=== PATIENT | female | born 1960 | race Caucasian/White ===

== ENCOUNTER → 2020-04-28 09:47 | Outpatient (BNVA) | payer BC, SELFPAY | PROVIDERS: Family Provider Family Medicine; Visit Provider Internal Medicine | DX: Z11.59 Encounter for screening for other viral diseases (principal) | CPT/HCPCS: 87635 ==

== ENCOUNTER 2020-09-08 14:08 | Outpatient (CLI) | payer BC, SELFPAY ==
--- NOTE | 2020-09-08 14:14 | MM_ITS ---
WS: [id number] BILATERAL SCREENING DIGITAL MAMMOGRAM WITH CAD HISTORY: SCREENING COMPARISON: 06/25/2018 and 01/10/2018 Bilateral CC and MLO views submitted. Computer aided detection analyzed. Breast composition: There are scattered areas of fibroglandular density. No suspicious masses, microc alcifications or architectural distortion. MM/[place] [id number] IMPRESSION: BI-RADS: 1-Negative FOLLOW UP: 1 Year Follow-up
== END 2020-09-08 14:09 | disposition home or self-care (01) ==
LOC: RADSHAW 14:13
PROVIDERS: PCP Family Medicine; Visit Provider Family Medicine
DX: Z12.31 Encounter for screening mammogram for malignant neoplasm of breast (principal)
CPT/HCPCS: 77067

== ENCOUNTER → 2020-10-31 11:06 | Outpatient (BNVA) | payer BC, SELFPAY | PROVIDERS: PCP Family Medicine; Visit Provider Internal Medicine Rheumatology | DX: M79.7 Fibromyalgia (principal); M62.81 Muscle weakness (generalized); R76.8 Other specified abnormal immunological findings in serum; R70.0 Elevated erythrocyte sedimentation rate; R53.83 Other fatigue; G56.03 Carpal tunnel syndrome, bilateral upper limbs | CPT/HCPCS: 99204 ==

== ENCOUNTER 2020-11-01 16:24 | Outpatient (CLI) | payer BC, SELFPAY ==
[2020-11-01 17:02] LABS: Creatine Phosphokinase 85 U/L (26-192)
[2020-11-01 17:56] LABS: Erythrocyte Sedimentation Rate 39 mm/hr (0-15)
[2020-11-03 13:13] LABS: Aldolase 4.3 U/L (< OR = 8.1)
== END 2020-11-01 16:25 | disposition home or self-care (01) ==
LOC: LAB 16:28
PROVIDERS: PCP Family Medicine; Visit Provider Internal Medicine Rheumatology
DX: M60.9 Myositis, unspecified (principal); M62.81 Muscle weakness (generalized); R70.0 Elevated erythrocyte sedimentation rate
CPT/HCPCS: 36415; 82085; 82550; 85651; 86140

== ENCOUNTER → 2020-11-16 14:12 | Outpatient (BNVA) | payer BC, SELFPAY | PROVIDERS: PCP Family Medicine; Visit Provider Psychiatry & Neurology Neurology | DX: M62.81 Muscle weakness (generalized) (principal); M79.7 Fibromyalgia | CPT/HCPCS: 95885; 95886; 95910 ==

== ENCOUNTER → 2020-11-23 13:57 | Outpatient (BNVA) | payer BC, SELFPAY | PROVIDERS: PCP Family Medicine; Visit Provider Internal Medicine Rheumatology | DX: M79.7 Fibromyalgia (principal); R76.8 Other specified abnormal immunological findings in serum; R53.83 Other fatigue | CPT/HCPCS: 99213 ==

== ENCOUNTER 2021-04-14 10:12 | Outpatient (CLI) | payer OTHER, SELFPAY ==
--- NOTE | 2021-04-14 10:18 | XR_ITS ---
WS: [id number] Right arm and humerus, 2 views, 04/14/2021 Clinical Data: ARM PAIN Comparison: None. Findings: No fractures or dislocations are seen. The shaft of the humerus is intact. No bone destruction or er osion is seen. The soft tissues are normal. XR/[place] [id number] Impression: Negative right arm and humerus.
== END 2021-04-14 10:13 | disposition home or self-care (01) ==
PROVIDERS: PCP Family Medicine; Visit Provider Family Medicine
DX: M79.601 Pain in right arm (principal)
CPT/HCPCS: 73060

== ENCOUNTER → 2021-10-25 11:12 | Outpatient (BNVA) | payer OTHER, SELFPAY | PROVIDERS: PCP Family Medicine; Visit Provider Podiatrist Foot & Ankle Surgery | DX: M79.671 Pain in right foot (principal); M21.611 Bunion of right foot | CPT/HCPCS: 73630 ==

== ENCOUNTER → 2021-10-30 11:27 | Outpatient (BNVA) | payer OTHER, SELFPAY | PROVIDERS: PCP Family Medicine; Visit Provider Podiatrist Foot & Ankle Surgery | DX: Z01.818 Encounter for other preprocedural examination (principal) | CPT/HCPCS: 87635 ==

== ENCOUNTER 2021-11-03 06:03 | Day surgery (SDC) | payer OTHER, SELFPAY ==
[2021-11-01 14:02] VITALS: BMI 27.2
[2021-11-03] VITALS (9 sets, daily range): BP systolic 119–142; BP diastolic 70–100; PULSE 74–91; RESP 16–18; TEMP 36.1–36.3; O2SAT 95–99
--- NOTE | 2021-11-03 | SCC_ITS ---
Procedure done: Right bunionectomy 3 seconds of fluoroscopic guidance, for a cumulative dose of 0.063 mGy, was provided to Dr. Padgett by the radiology department. C-arm images of the right foot were saved for the patient's permanent record. [facility]
--- NOTE | 2021-11-03 06:35 | W.PM.OPSUD ---
Surgery/Procedure H&P Update DATE OF PROCEDURE: November 03, 2021 DATE H&P PERFORMED: 10/25/21 CHANGES TO PREVIOUS DOCUMENTATION: None PREOP DIAGNOSIS: Right bunion PLANNED PROCEDURE: Operation Date: 11/03/21 07:00 Proposed Procedures p Double Osteotomy (bunionectomy)39637/M21.611 bunion of right foot(Right) - Clyde Padgett DPM
--- NOTE | 2021-11-03 06:38 | SC_ITS ---
WS: [id number] EXAMINATION: Intraoperative images of the right foot for 11/03/2021. HISTORY: Hallux valgus. FINDINGS: Lateral small plate and screw fixation of osteotomy in the proximal first phalanx. Osteotomy of the distal first metatarsal with screw fixation. Surgical appliances and bony structure are in proper position and alignment. SC/C-arm Mini [id number] IMPRESSION: Postoperative right foot as above.
[2021-11-03] MEDS: sodium chloride 0.9% 1,000 ML 30 ML IV (06:41)
[2021-11-03] MEDS: gabapentin 300 mg Capsule PO (06:42)
[2021-11-03] MEDS: CELEcoxib 200 mg Capsule 400 MG PO (06:42)
--- NOTE | 2021-11-03 06:55 | ANES.PREANE2 ---
Pre-Anesthetic Assessment Height/Weight: Height 1.57 m Weight 67.585 kg Temp Pulse Resp BP Pulse Ox 97.4 F L 91 16 140/100 97 11/03/21 06:20 11/03/21 06:20 11/03/21 06:20 11/03/21 06:20 11/03/21 06:20 Preop Diagnosis: Right bunion Operation Date: 11/03/21 07:00 Proposed Procedures p Double Osteotomy (bunionectomy)47584/M21.611 bunion of right foot(Right) - Clyde Padgett DPM Familial anesthetic complications: None Was Beta Jose taken within 24 hours: N/A Was Clonidine taken within 24 hours: N/A Last intake: Intake Last Liquid Date 11/02/21 Last Liquid Time 21:00 Last Solid Date 11/02/21 Last Solid Time 21:00 Social No alcohol and No tobacco Exam alert, oriented x 3, clear to auscultation bilaterally and regular rate & rhythm Airway Submandibular: within normal limits Cervical ROM: within normal limits Mallampati: Class II Dentition: full History/ROS No significant complaints Pulmonary Sleep Apnea CV/HEM None reported None reported Hepatic None reported Metabolic None reported Musc/skel Fibromyalgia Anesthetic Plan ASA status: 2 Anesthesia: Anesthesia Evaluation, General and MAC Other: I discussed with the patient risks, goals, and benefits of MAC and general anesthesia. We discussed spectrum of MAC anesthesia including conversion to general as well as possibility of recall of intraoperative stimuli including discomfort/pain. Patient agrees to proceed with MAC. Risk of > 500 ml blood loss (7ml/kg in children): No Medications/Allergies Home Medications Medication Instructions Recorded Confirmed Last Taken Type latanoprost 0.005 % eye drops 1 drp OPHTHALMIC (EYE) DAILY 11/01/21 11/03/21 11/02/21 History oxycodone-acetaminophen 10 mg-325 1 tab PO Q6H PRN 7 Days #28 tab 11/03/21 Unknown Rx mg tablet (Percocet) Allergies Allergy/AdvReac Type Severity Reaction Status Date / Time No Known Allergies Allergy Verified 10/25/21 11:18 Current Medications Generic Name Dose Route Start Last Admin Trade Name Freq PRN Reason Stop Dose Admin Sodium Chloride 1,000 mls @ 30 mls/hr 11/03/21 06:15 11/03/21 06:41 Sodium Chloride 0.9% IV 11/04/21 06:14 30 mls/hr .Q24H JW Administration PFSH Anesthesia Medical History Fatigue Fibromyalgia Fibromyalgia affecting forearm Hx of cold sores Muscle pain Positive FELECIA (antinuclear antibody) Proximal muscle weakness Surgical History History of hysterectomy Family History Other Cancer Hyperlipidemia Hypertension Lung disease Denies family history of Rheumatoid arthritis Diabetes Lupus Chronic kidney disease (CKD) Stroke Social History Smoking and tobacco status: never smoked Data Anesthesia Cardiac Studies: No Data to Display
--- NOTE | 2021-11-03 08:00 | XR_ITS ---
WS: [id number] Exam: XR foot RT min 3V* [id number] Date/Time of Exam: 11/03/2021 8:12 AM Reason For Exam: post op Comparison 10/25/2021. Signs of bunion repair with the osteotomy of the distal first metatarsal with screw fixation. There i s also an osteotomy along the medial margin of the first metatarsal head. An additional osteotomy wit h plate and screw fixation is noted in the proximal phalanx of the great toe. Soft tissue air noted. XR/XR foot RT min 3V* [id number] IMPRESSION: 1. Bunion repair with the internal fixation hardware as detailed above. Alignme nt appears to be satisfactory for healing. Postoperative changes in the adjacen t soft tissues.
--- NOTE | 2021-11-03 08:07 | PM.OP ---
Operative Report Date of procedure: November 03, 2021 Pre-op diagnosis: Right bunion Post-op diagnosis: Right bunion deformity Post-op findings: Right bunion deformity Procedure done: Right bunionectomy Implants: Laie 28 3 mm headed partially-threaded cannulated screw at the bunionectomy site. Laie 28 10 x 10 x 10 mm nitinol angled Evan staple. 3-0 Vicryl, 4-0 Vicryl, 4-0 nylon, 20 cc of 0.25% Marcaine plain and a right Aquino block fashion preoperatively. 10 cc of Exparel and this was expanded with 10 cc of 0.25% Marcaine plain postoperatively per boat engines installer recommendation and technique in a grid like fashion subcutaneously at the operative site. Specimens removed/disposition: None Pathology: None Surgeon: Clyde Padgett D.P.M. Flask Fitter: Omar Estimated blood loss: Less than 5 35 IV fluids: None Urine output: None Complications: None Findings: None Brief History: Patient has had progression of bunion pain at the right foot affecting her quality of life and everyday living. Has failed conservative treatments consisting of wider accommodative shoes, supportive shoe, NSAIDs, stretching and activity modifications. Would like to proceed with a bunionectomy of the right foot. Risks include but are not limited to pain, bleeding, numbness, infection, hardware failure, delayed union, malunion, nonunion, hardware irritation, stiffening of the metatarsophalangeal joint, hallux varus, bruising, chronic numbness, decreased dorsiflexion at the right first metatarsophalangeal joint, avascular necrosis of the right first metatarsal head, need for further surgical intervention, deep vein thrombosis, heart attack, stroke and . Patient n.p.o. since midnight. Informed consent signed by patient and myself. No guarantees written, expressed or implied. Patient wishes to proceed. Procedure: Under mild sedation the patient was brought to the operating room and remained on the gurney in supine position. A timeout was performed. Anesthesia was then administered by the anesthesia service. Local anesthesia injected by myself consisting of 20 cc of 0.5% Marcaine plain and a right Aquino block fashion. A well-padded pneumatic tourniquet applied to the right ankle. The right lower extremity was scrubbed, prepped and draped utilizing normal aseptic technique. Right foot was then exanguinated with an Esmarch bandage and the tourniquet inflated to 250 mmHg. Attention was directed to the right first metatarsophalangeal joint where a dorsal medial incision was made medial and parallel to the extensor houses longus tendon through skin with a #15 blade. Dissection carried down through subcutaneous tissue to the layer of periosteum and joint capsule utilizing blunt and sharp technique. Care was taken to retract and preserve neurovascular and tendinous structures. All bleeders were ligated and cauterized as necessary. Linear capsulotomy was performed in the head of the first metatarsal and base of the proximal phalanx medially were freed from their soft tissue and capsular attachments. Medial eminence was transected at the right first metatarsal head and passed from operative field followed by a chevron style osteotomy with apex oriented to distally through and through, the head of the first metatarsal was translocated laterally in a more anatomically correct position and fixated utilizing standard AO technique. This was fixated with a Laie 28 3 mm headed partially-threaded cannulated screw with excellent bony apposition and compression noted, utilizing intraoperative fluoroscopy it was noted that the screw did not violate the first metatarsophalangeal joint. The incision was flushed with saline solution followed by transection of the remaining medial eminence and shelf this was then smoothed at the first metatarsal head of all rough edges utilizing a hand rasp. Attention was then directed to the base of the proximal phalanx of the right great toe where a Evan osteotomy was performed utilizing a sagittal saw maintaining the lateral cortex to act as a hinge this was then reduced and fixated utilizing a Laie 2810 mm staple with excellent bone apposition and compression noted. Staple did not violate the first metatarsal phalangeal joint confirmed intraoperatively with direct visualization as well as with C arm. The incision site was flushed with copious amounts of sterile saline solution and closed in a layered fashion with the capsule closed with 3-0 Vicryl, subcutaneous tissue closed with 4-0 Vicryl and skin closed with 4-0 nylon. Subcutaneous tissue infiltrated with Exparel expanded with 0.25% Marcaine plain as above. Adaptic, 4 x 4's, Kerlix and Burton wrap were then applied along with a cam boot and tourniquet was deflated with a prompt hyperemic response noted to the distal digits of the right foot. Patient tolerated the procedure and anesthesia well and was transferred to the PACU with vital signs stable and vascular status intact. Following a period of postop monitoring she will be discharged home may be protected weightbearing with Cam boot was given at home instructions as well as follow-up, was given my phone number to contact with any postoperative questions or concerns. Percocet 10/325 mg sent to [facility] to be taken judiciously as needed for pain every 4-6 hours. She will begin a baby aspirin once daily starting tomorrow to potentially reduce the risk for deep vein thrombosis.
[2021-11-03] MEDS: oxyCODONE-APAP 10-325 mg Tablet 1 TAB PO (08:36)
--- NOTE | 2021-11-03 09:51 | ANE.PACU2 ---
Inpatient post-anesthesia follow up: Airway intact: Yes Vital signs: Temperature 97.0 F Pulse Rate 74 Respiratory Rate 16 Blood Pressure 139/78 Pulse Oximetry 95 Oxygen Delivery Me thod Room Air Oxygen Flow Rate 9 Fraction of Inspir ed Oxygen Hydration adequate: Yes Nausea and vomiting: No Pain level: 4 Mental status: Baseline
== END 2021-11-03 08:54 | disposition home or self-care (01) ==
PROVIDERS: PCP Family Medicine; Visit Provider Podiatrist Foot & Ankle Surgery
PROC: (CPT 28299; principal; 2021-11-03 07:00)
DX: M21.611 Bunion of right foot (principal); M79.7 Fibromyalgia
CPT/HCPCS: 28299; 73630; 76000; C1713; C9290; J0690; J2250; J2704; J3010; J3490; J7030

== ENCOUNTER → 2021-11-10 09:09 | Outpatient (BNVA) | payer OTHER, SELFPAY | PROVIDERS: PCP Family Medicine; Visit Provider Podiatrist Foot & Ankle Surgery | DX: Z98.890 Other specified postprocedural states (principal) | CPT/HCPCS: 73630 ==

== ENCOUNTER → 2021-11-16 15:50 | Outpatient (BNVA) | payer OTHER, SELFPAY | PROVIDERS: PCP Family Medicine; Visit Provider Podiatrist Foot & Ankle Surgery | DX: Z98.890 Other specified postprocedural states (principal) | CPT/HCPCS: 73630 ==

== ENCOUNTER → 2021-12-04 13:21 | Outpatient (BNVA) | payer SELFPAY | PROVIDERS: PCP Family Medicine; Visit Provider Podiatrist Foot & Ankle Surgery | DX: Z98.890 Other specified postprocedural states (principal) | CPT/HCPCS: 73630 ==

== ENCOUNTER → 2022-01-04 08:21 | Outpatient (BNVA) | payer SELFPAY | PROVIDERS: PCP Family Medicine; Visit Provider Podiatrist Foot & Ankle Surgery | DX: Z98.890 Other specified postprocedural states (principal) | CPT/HCPCS: 73630 ==

== ENCOUNTER → 2022-07-05 13:27 | Outpatient (BNVA) | payer SELFPAY | PROVIDERS: PCP Family Medicine; Visit Provider Clinical Nurse Specialist Adult Health | DX: R68.83 Chills (without fever) (principal); R10.9 Unspecified abdominal pain; R10.30 Lower abdominal pain, unspecified; M79.671 Pain in right foot; B00.9 Herpesviral infection, unspecified | CPT/HCPCS: 80053; 81000; 85025 ==

== ENCOUNTER → 2022-07-19 13:08 | Outpatient (BNVA) | payer SELFPAY | PROVIDERS: PCP Family Medicine; Visit Provider Family Medicine | DX: R31.9 Hematuria, unspecified (principal) | CPT/HCPCS: 81000 ==

== ENCOUNTER → 2022-09-12 12:52 | Outpatient (BNVA) | payer SELFPAY | PROVIDERS: PCP Family Medicine; Visit Provider Urology | DX: N30.90 Cystitis, unspecified without hematuria (principal); R10.2 Pelvic and perineal pain | CPT/HCPCS: 81003 ==

== ENCOUNTER 2024-01-23 20:55 | Emergency (ER) | payer SELFPAY ==
--- NOTE | 2024-01-23 21:23 | ED_ITS ---
HPI - Extremity Injury (Lower) 2 General: Chief Complaint: Extremity Problem,Nontraumatic Stated Complaint: Right leg pain Time Seen by Provider: 01/23/24 21:21 History of Present Illness: 63-year-old female comes in today for co mplaints of right leg pain. Patient has no significant swelling or redness to the leg. Patient just returned from [place] and had driven 16 hours straight. Patient reports that she was unable to sleep well last night and the pain just seems to persist through the day. Review of Systems 2 General: Reports: 10 or more systems reviewed and unremarkable except in HPI and below PFSH ED 2 PFSH: Medical History Fatigue Fibromyalgia Fibromyalgia affecting forearm Hx of cold sores Muscle pain Positive FELECIA (antinuclear antibody) Proximal muscle weakness Surgical History History of hysterectomy Family History Other Cancer Hyperlipidemia Hypertension Lung disease Denies family history of Rheumatoid arthritis Diabetes Lupus Chronic kidney disease (CKD) Stroke Social History Smoking and tobacco/nicotine status: never used tobacco/nicotine Alcohol intake: never Marital status: Current occupational status: employed Physical Exam 2 Const: COMMON NORMALS: alert HENMT: COMMON NORMALS: atraumatic HEAD & SCALP: atraumatic Neck/C-Spine: COMMON NORMALS: full ROM Resp: COMMON NORMALS: normal respiratory effort and clear to auscultation bilaterally AUSCULTATION: clear to auscultation bilaterally Cardio: COMMON NORMALS: regular rate and regular rhythm RATE: regular rate RHYTHM: regular rhythm Back/Pelvis: COMMON NORMALS: thoracic and lumbar spine normal to inspection Extremity: COMMON NORMALS: normal to inspection Neuro: SENSORIUM/ORIENTATION: Yes alert Skin: COMMON NORMALS: turgor normal GENERAL SKIN EXAM: turgor normal Course 2 Vital Signs: Vital signs: Vital Signs Pulse Rate 72 01/23/24 22:26 Respiratory Rate 16 01/23/24 22:26 Blood Pressure 175/80 01/23/24 22:26 Pulse Oximetry 98 01/23/24 22:26 Oxygen Delivery Me thod Room Air 01/23/24 22:26 MDM - Extremity Injury (Lower) Medical Decision Making 63-year-old female comes in today with pain and discomfort to the right leg. Patient just recently returned from [place]. Minimal to no swelling is noted. Distal pulses and sensation are intact. Differential diagnosis DVT, leg strain, sciatica, fracture of the foot. Patient refused x-ray of the foot. Venous Doppler of the right lower extremity was negative for DVT. CBC CMP was unremarkable. I believe patient might have some sciatica that is causing the pain to run down the leg. Patient does not feel that this is a problem and continues to believe that it is a blood clot in her leg. Patient has good strong pedal pulse. Skin color is pink warm and dry. Offered a injection of Toradol to help with pain and then recommended follow-up with primary care. Patient reported understanding agreed to plan. Lab Data 01/23/24 22:11 01/23/24 22:11 Radiology Impressions Venous Duplex 01/23/24 21:24 IMPRESSION: No evidence of deep vein thrombosis in the right lower extremity. Laboratory Results WBC 5.16 10^3/uL (3.29-11.43) 01/23/24 22:11 RBC 3.88 10^6/uL (3.85-5.65) 01/23/24 22:11 Hgb 13.30 g/dL (11.27-16.99) 01/23/24 22:11 Hct 37.4 % (36-47) 01/23/24 22:11 MCV 96.4 fl (85-98) 01/23/24 22:11 MCH 34.3 pg (27-33) H 01/23/24 22:11 MCHC 35.6 g/dL (30-55) 01/23/24 22:11 RDW 11.9 % (12.1-15.1) L 01/23/24 22:11 Plt Count 255 10^3/cmm (157-399) 01/23/24 22:11 MPV 8.8 fL (7.4-10.4) 01/23/24 22:11 Neut % (Auto) 35.3 % 01/23/24 22:11 Lymph % (Auto) 52.9 % 01/23/24 22:11 [place] % (Auto) 8.3 % 01/23/24 22:11 Eos % (Auto) 2.5 % 01/23/24 22:11 Baso % (Auto) 0.8 % 01/23/24 22:11 Neut # (Auto) 1.82 10^3/uL (1.8-7.7) 01/23/24 22:11 Lymph # (Auto) 2.7 10^3/uL (0.8-4.8) 01/23/24 22:11 [place] # (Auto) 0.4 10^3/uL (0.2-0.9) 01/23/24 22:11 Eos # (Auto) 0.1 10^3/uL (0.0-0.8) 01/23/24 22:11 Baso # (Auto) 0.0 10^3/uL (0.0-0.1) 01/23/24 22:11 Nucleated RBC % (auto) 0 % 01/23/24 22:11 Nucleated RBCs # 0.0 /100WBC 01/23/24 22:11 PT 12.60 SECONDS (12.1-14.9) 01/23/24 22:11 INR 0.92 (0.8-1.2) 01/23/24 22:11 APTT 35.6 SECONDS (23.9-36.7) 01/23/24 22:11 Sodium 142 mmol/L (136-145) 01/23/24 22:11 Potassium 3.6 mmol/L (3.5-5.1) 01/23/24 22:11 Chloride 100 mmol/L (98-107) 01/23/24 22:11 Carbon Dioxide 32 mmol/L (22-29) H 01/23/24 22:11 Anion Gap 13.6 (5-19) 01/23/24 22:11 BUN 16 mg/dL (8-23) 01/23/24 22:11 Creatinine 0.6 mg/dL (0.5-0.9) 01/23/24 22:11 GFR Calculation 101.0 mL/min (90-130) 01/23/24 22:11 Glucose 97 mg/dL (65-115) 01/23/24 22:11 Calculated Osmolality 295 mOsm/kg (285-295) 01/23/24 22:11 Calcium 9.8 mg/dL (8.5-10.5) 06/20/24 22:11 Total Bilirubin 0.3 mg/dL (0.15-1.2) 01/23/24 22:11 AST 24 U/L (0-32) 01/23/24 22:11 ALT 26 U/L (0-33) 01/23/24 22:11 Alkaline Phosphatase 90 U/L (35-105) 01/23/24 22:11 Total Protein 7.2 g/dL (6.6-8.7) 01/23/24 22:11 Albumin 4.2 g/dL (3.5-5.2) 01/23/24 22:11 Globulin 3.0 g/dL (1.3-4.6) 01/23/24 22:11 All radiology interpretation(s) finalized by discharge Discharge Plan Discharge Patient Disposition: Home Clinical Impression: Pain of right calf Condition: Stable Prescriptions: No Action prednisone 20 mg tablet 20 mg PO DAILY Qty: 7 0RF valacyclovir [Valtrex] 500 mg tablet 2,000 mg PO Q12H 1 Days Qty: 8 3RF sulfamethoxazole-trimethoprim [Bactrim DS] 800-160 mg tablet 1 tab PO Q12H Qty: 14 0RF hydrocodone-acetaminophen 5-325 mg tablet 1 tab PO Q6H PRN (Reason: Post operatve pain ) 7 Days Qty: 20 0RF Rx Instructions: Postoperative state date of operation 11/03/2021 valacyclovir 500 mg tablet See Rx Instructions .ROUTE .COMPLEX Qty: 90 1RF Dose Instruction: TAKE ONE TABLET BY MOUTH EVERY DAY Rx Instructions: TAKE ONE TABLET BY MOUTH EVERY DAY latanoprost 0.005 % Drops 1 drp OPHTHALMIC (EYE) DAILY Discharge Orders: Discharge ED (Routine); Ordered 01/23/24 Ordered By: Perfecto Stevenson Discharge Diet: Usual diet Discharge Activity: Increase activity as tolerated Patient Instructions: Leg Pain (ED) Activity Restrictions/Additional Instructions: Activity as tolerated. Use ice or heat to help with pain. Drink plenty of water. Use acetaminophen and ibuprofen for further pain relief. Follow-up with primary care for further instructions. Coding Level of Care Code ED [place] for Joe Chamorro
--- NOTE | 2024-01-23 21:24 | USR_ITS ---
PROCEDURE INFORMATION: Exam: US Duplex Right Lower Extremity Veins, Limited Exam date and time: 01/23/2024 9:42 PM Age: 63 years old Clinical indication: Pain; Leg, lower; Right; Additional info: Leg pain TECHNIQUE: Imaging protocol: Real-time duplex ultrasound of the right extremity with 2-D hinojosa scale, color Doppler flow and spectral waveform analysis including responses to compression and other maneuvers (when performed) with image documentation. Limited exam was focused on the right lower extremity veins. COMPARISON: CR XR foot RT min 3V* [id number] 01/04/2022 8:23 AM FINDINGS: Right deep veins: The right common femoral, femoral, proximal profunda femoral, popliteal, peroneal and posterior tibial veins are patent without thrombus. Normal Doppler waveforms. Normal compressibility and/or augmentation response. Superficial veins: Greater saphenous vein at the saphenofemoral junction is patent without thrombus. Soft tissues: Unremarkable. US/[place] [id number] IMPRESSION: No evidence of deep vein thrombosis in the right lower extremity.
[2024-01-23 21:44] VITALS: BMI 24.1
[2024-01-23 22:26] VITALS: BP 175/80; PULSE 72; RESP 16; O2SAT 98
[2024-01-23 22:43] LABS: Alanine Aminotransferase 26 U/L (0-33); Albumin Level 4.2 g/dL (3.5-5.2); Alkaline Phosphatase 90 U/L (35-105); Anion Gap 13.6 (5-19); Aspartate Amino Transferase 24 U/L (0-32); Basophils % 0.8 %; Blood Urea Nitrogen 16 mg/dL (8-23); Calcium 9.8 mg/dL (8.5-10.5); Carbon Dioxide 32 mmol/L (22-29); Chloride 100 mmol/L (98-107); Eosinophils # 0.1 10^3/uL (0.0-0.8); Eosinophils % 2.5 %; Glucose 97 mg/dL (65-115); Hematocrit 37.4 % (36-47); Lymphocytes # 2.7 10^3/uL (0.8-4.8); Lymphocytes % 52.9 %; Mean Corpuscular HGB Conc 35.6 g/dL (30-55); Mean Corpuscular Hemoglobin 34.3 pg (27-33); Mean Corpuscular Volume 96.4 fl (85-98); Mean Platelet Volume 8.8 fL (7.4-10.4); Monocytes # 0.4 10^3/uL (0.2-0.9); Monocytes % 8.3 %; Neutrophils # 1.82 10^3/uL (1.8-7.7); Neutrophils % 35.3 %; Nucleated Red Blood Cells % 0 %; Osmolality Calculated 295 mOsm/kg (285-295); Platelet Count 255 10^3/cmm (157-399); Potassium 3.6 mmol/L (3.5-5.1); Red Blood Count 3.88 10^6/uL (3.85-5.65); Red Cell Distribution Width 11.9 % (12.1-15.1); Sodium 142 mmol/L (136-145); Total Bilirubin 0.3 mg/dL (0.15-1.2); Total Protein 7.2 g/dL (6.6-8.7); White Blood Count 5.16 10^3/uL (3.29-11.43)
[2024-01-23 22:50] LABS: INR 0.92 (0.8-1.2)
[2024-01-23 22:51] LABS: Partial Thromboplastin Time 35.6 SECONDS (23.9-36.7)
[2024-01-23 23:44] VITALS: BP 168/71; PULSE 73; RESP 18; O2SAT 98
== END 2024-01-23 23:45 | disposition home or self-care (01) ==
PROVIDERS: Emergency Provider Nurse Practitioner Family
DX: M79.662 Pain in left lower leg (principal)
CPT/HCPCS: 36415; 80053; 85025; 85610; 85730; 93971; 99284